=== PATIENT | female | born 1990 | race Caucasian/White ===

== ENCOUNTER 2020-01-07 10:31 | Outpatient (CLI) | payer OTHER, SELFPAY ==
[2020-01-07 11:15] LABS: Basophils Absolute Auto 0.1 K/mm3 (0.0-0.1); Eosinophils Absolute Auto 0.2 K/mm3 (0-0.3); Eosinophils Percent Auto 1.8 % (0-4.4); Hematocrit 43.7 % (37.0-47.0); Hemoglobin 14.6 g/dL (12.0-15.0); Immature Granulocyte Absolute 0.02 K/mm3 (0.00-0.031); Immature Granulocyte Percent A 0.2 % (0-0.5); Lymphocytes Absolute Auto 2.52 K/mm3 (0.9-3.2); Lymphocytes Percent Auto 25.1 % (18.3-44.2); Mean Corpuscular HGB Conc 33.4 g/dl (32-36); Mean Corpuscular Hemoglobin 29.9 pg (26-34); Mean Corpuscular Volume 89.5 fl (80-100); Mean Platelet Volume 8.9 fl (7.4-10.4); Monocytes Absolute Auto 0.8 K/mm3 (0.1-0.6); Neutrophils Absolute Auto 6.4 K/mm3 (1.3-6.7); Neutrophils Percent Auto 63.9 % (45.5-73.1); Platelet Count Result 344 k/mm3 (150-375); Red Blood Count 4.88 M/mm3 (4.2-5.4); Red Cell Distribution Width 11.9 % (11.5-14.5); White Blood Count 10.1 K/mm3 (4.5-10.0)
== END 2020-01-07 10:32 | disposition home or self-care (01) ==
LOC: ANHSURGERY 10:34
PROVIDERS: PCP Internal Medicine; Visit Provider Obstetrics & Gynecology
DX: R10.2 Pelvic and perineal pain (principal); Z01.812 Encounter for preprocedural laboratory examination
CPT/HCPCS: 36415; 85025; 86850; 86900; 86901

== ENCOUNTER 2020-01-15 02:21 | Outpatient (CLI) | payer OTHER, SELFPAY ==
[2020-01-15 18:39] LABS: SARS-CoV-2 RNA PCR Negative
== END 2020-01-15 02:22 | disposition home or self-care (01) ==
LOC: ANHCOVIDDT 02:21
PROVIDERS: PCP Internal Medicine; Visit Provider Obstetrics & Gynecology
DX: Z01.812 Encounter for preprocedural laboratory examination (principal); Z11.59 Encounter for screening for other viral diseases
CPT/HCPCS: 87635; C9803; U0003

== ENCOUNTER 2020-01-17 02:32 | Day surgery (SDC) | payer OTHER, SELFPAY ==
[2020-01-06 15:10] VITALS: BMI 34.4
--- NOTE | 2020-01-15 07:58 | PM.IMHP ---
H&P: HPI History of Present Illness Chief complaint: Enlarged Uterus/ Pelvic Pain/ Irregular Bleeding Narrative: Josi Bradley is a 29 year old female 3 para 3 who was admitted for robotic total hysterectomy and bilateral salpingectomies. She has an enlarged uterus and complains of pain discomfort and dyspareunia. She has a second-degree prolapse and her bleeding has been under control. She is against taking oral contraceptives and refused an IUD. Risks and benefits this procedure reviewed including but not exclusive of , aspiration pneumonia, bleeding, transfusion, perforation injury to bowel bladder, ureters, or other internal organs with need for laparotomy. She received the [employer] handout entitled hysterectomy. She received the div and she handout. She had all questions answered. She asked to proceed Review of Systems Review of Systems: All systems reviewed & are unremarkable except as noted in HPI and below PMFSH Social History Social History Smoking status: Never smoker Spiritual care concerns: No Meds Home Medications and Allergies Home Medications Medication Instructions Recorded Confirmed Type albuterol sulfate 2 puff INHALATION Q6H PRN 01/06/20 01/06/20 History bupropion HCl 150 mg PO DAILY 01/06/20 01/06/20 History cetirizine [Zyrtec] 10 mg PO DAILY 01/06/20 01/06/20 History cholecalciferol (vitamin D3) 25 mcg PO DAILY 01/06/20 01/06/20 History [Vitamin D3] citalopram 40 mg PO DAILY 01/06/20 01/06/20 History metformin 500 mg PO DAILY 01/06/20 01/06/20 History montelukast [Singulair] 10 mg PO DAILY 01/06/20 01/06/20 History multivitamin 1 tablet PO DAILY 01/06/20 01/06/20 History Allergies Allergy/AdvReac Type Severity Reaction Status Date / Time latex Allergy Mild BURNING Verified 01/06/20 15:11 Exam Const: General: no acute distress Eyes: General: appearance normal, both eyes and all related structures Neck: Neck: supple and no JVD Thyroid: thyroid normal Resp: Effort & Inspection: normal respiratory effort Auscultation: clear to auscultation bilaterally Cardio: Rate: regular rate Rhythm: regular rhythm GI: Inspection: non-distended GI Palp: Yes Soft to palpation, No Tenderness to palpation present (GI) and No Guarding due to palpation present (GI) Auscultation: normal bowel sounds : General: Yes bladder normal to inspection External Female Exam: normal external appearance Speculum Exam - Vagina: vaginal bleeding Speculum Exam - Cervix: normal appearance of the cervix and Other cervical findings present (prolapse) Bimanual exam- vagina & uterus: enlarged Bimanual Exam- Adnexa, other: normal adnexae Skin: General skin exam: no rashes or lesions noted Extrem: General: normal to inspection and no edema Psych: Mental Status: mental status grossly normal Affect: normal affect Assessment and Plan Additional Plan impression: Enlarged uterus / pelvic pain and dyspareunia /uterine prolapse : Robotic total vaginal hysterectomy/biliteral salpingectomies
[2020-01-17] VITALS (16 sets, daily range): BP systolic 98–122; BP diastolic 51–73; PULSE 59–100; RESP 12–20; TEMP 36.2–37.3; O2SAT 96–100
--- NOTE | 2020-01-17 02:37 | WPDHPUPDATE1 ---
History and Physical Update Update Date/Time: 01/17/20 02:37 History and Physical has been reviewed, including an updated exam of the patient. There are NO changes in the patient's condition. Risks, benefits, and alternatives have been discussed and questions answered. Patient agrees to proceed with procedure.
[2020-01-17] MEDS: LACTATED RINGERS 1,000 ML 30 ML IV CONT ×2 (08:25→10:56)
[2020-01-17] MEDS: ACETAMINOPHEN 500 MG TABLET 1000 MG PO (08:29)
[2020-01-17] MEDS: KETOROLAC 15 MG/ML VIAL (*BKC) IV PUSH (08:29)
[2020-01-17 08:32] LABS: Glucose Point of Care 100 (65-105)
--- NOTE | 2020-01-17 08:38 | P.PNAN_ITS ---
Anes - Initial Pre Proc Eval Procedure: Operation Date: 01/17/20 09:30 Proposed Procedures p Robotic Assisted Total Vaginal Hysterectomy With Bilateral Salpingectomy - Claudy Wilson MD Date/Time: 01/17/20 08:38 Surgeon: Claudy Wilson MD Pre Op Diagnosis: Enlarged Uterus/ Pelvic Pain/ Irregular Bleeding Patient Data Age: 29 Gender: F Height: 1.65 m Weight: 94 kg Allergies Allergy/AdvReac Type Severity Reaction Status Date / Time latex Allergy Mild BURNING Verified 01/06/20 15:11 Home Medications Medication Instructions Recorded Confirmed Type albuterol sulfate 2 puff INHALATION Q6H PRN 01/06/20 01/06/20 History bupropion HCl 150 mg PO DAILY 01/06/20 01/06/20 History cetirizine [Zyrtec] 10 mg PO DAILY 01/06/20 01/06/20 History cholecalciferol (vitamin D3) 25 mcg PO DAILY 01/06/20 01/06/20 History [Vitamin D3] citalopram 40 mg PO DAILY 01/06/20 01/06/20 History metformin 500 mg PO DAILY 01/06/20 01/06/20 History montelukast [Singulair] 10 mg PO DAILY 01/06/20 01/06/20 History multivitamin 1 tablet PO DAILY 01/06/20 01/06/20 History hydrocodone-acetaminophen [[place]] 1 tablet PO Q4H PRN #30 tablet 01/17/20 Rx Laboratory Tests 01/17/20 08:27 POC Capillary Glucose 100 mg/dl mg/dl (65-105) Patient hx anesthesia problems: none Family hx anesthesia problems: none [facility] Past Medical History Medical History (Updated 01/17/20 @ 08:40 by Sandro Siu MD) Anxiety Asthma Migraine Obesity Social History Social History Smoking status: Never smoker Spiritual care concerns: No Anes - Eval Final PreProcedure Day of Procedure 01/17/20 08:38 Patient weight: obese Heart: regular rate and rhythm Lungs: clear to auscultation and normal air movement Airway: Mallampati scale class II Neurological: alert and oriented Last oral intake: >/= 8 hours ASA classification: II Emergent: no Anesthetic plan: proceed Anesthesia type and monitoring: general ETT Informed Consent: The patient's anesthetic plan and its attendant risks and benefits were discussed with the patient/family/POA. Questions were solicited and answers provided to the satisfaction of the patient/family/POA.
[2020-01-17] MEDS: ceFAZolin 2 GM/D5W 50 ML 2 GM/50 ML BAG IVPB (09:48)
--- NOTE | 2020-01-17 10:41 | PM.PROC ---
Procedure Note - Detailed Date of procedure: 01/17/20 Pre-op diagnosis: Enlarged Uterus/ Pelvic Pain/ Irregular Bleeding Surgeon: Claudy Wilson MD postop diagnosis: Enlarged uterus/ pelvic pain / irregular bleeding Procedure: Robotic total vaginal hysterectomy and bilateral salpingectomy EBL: 100cc Anesthesia: General endotracheal Complications: None Findings: Enlarged uterus. Normal-appearing ovaries and tubes Description of procedure: The patient was prepped and draped in normal sterile fashion placed in the dorsal lithotomy position. Under excellent general trach anesthesia weighted speculum placed posterior portion and a. Anterior lip of the cervix grasped with single-tooth tenaculum and uterus sounded to 10cm. Serial dilatation with fragmented out performed followed passage passage of the 10. TERI and 3. Cold cup. Next the 16 [place] catheter was placed and drained clear urine. The remainder the instruments removed. Gloves were changed A supraumbilical incision made and the Veress needle passed in the abdomen. Abdomen was filled with CO2 gas [id number]. The 8mm trocar advanced in the abdomen. Downside visualized under seen. Patient was placed in Trendelenburg and a right left lateral quadrant incision was made. The 8mm trocars advanced in the abdomen under direct visualization assuring no injury. A right upper quadrant incision made in the 10mm trocar advanced under direct visualization occurring no injury. The robot was docked Attention was turned to the console. The left round ligament was grasped, burned, cut anteriorly a bladder flap was formed by sharply dissecting the bladder caudally from the uterus and cervix to the opposite round ligament was clamped, burned, cut. The left fallopian tube was sharply dissected to removed. This was repeated on the contralateral side of the right to the left utero-ovarian ligament was clamped, burned, cut retaining left ovary. The right utero-ovarian ligament was skeletonized. Was clamped, burned, cut and brought to the level of the previously cut round ligament conserving the right ovary. The left cardinal and broad ligaments were then serially skeletonized clamped, burned, cut and brought down lateral edge of the uterus larger than normal wall blood vessels were seen these areas. This was brought down to the uterine vessels which were then skeletonized clamped burned and cut. In like fashion the cardinal broad ligaments on the right were serially skeletonized clamped, burned, cut and brought down lateral edge of the uterus. Once uterine vessels could be seen these were individually skeletonized clamped, burned, cut. Excellent blanching the uterus was noted a colpotomy incision was made the cervix uterus tubes were removed through the vagina. Blood loss was estimated [id number] the vagina was closed with continuous running 0V lock from lateral edge to lateral edge Jacky midline irrigation undertaken to clear hemostasis was assured but the space was then sprinkled with him in her room in the raw areas. Robot was undocked. The gas removed from the abdomen. Incisions closed with 4 Monocryl glue. The patient was awakened and went to recovery in satisfactory condition. All sponge, needle, instrument counts were correct. There were no immediate complications
[2020-01-17] MEDS: DEXTROSE 5%/LACTATED RINGERS 1,000 ML 125 ML IV CONT (12:47)
[2020-01-17] MEDS: MORPHINE SULFATE 4 MG/ML INJ IV PUSH (12:48)
[2020-01-17] MEDS: KETOROLAC 30 MG/ML VIAL (*BKC) IV PUSH ×2 (14:10→20:11)
[2020-01-18 00:55] VITALS: BP 107/55; PULSE 79; RESP 14; TEMP 37.6; O2SAT 98
[2020-01-18 02:01] VITALS: BP 96/48; PULSE 76; RESP 20; TEMP 37.3; O2SAT 98
[2020-01-18 05:11] LABS: Basophils Percent Auto 0.2 % (0.2-1.2); Eosinophils Percent Auto 0.2 % (0-4.4); Hematocrit 37.1 % (37.0-47.0); Hemoglobin 12.4 g/dL (12.0-15.0); Immature Granulocyte Absolute 0.08 K/mm3 (0.00-0.031); Immature Granulocyte Percent A 0.5 % (0-0.5); Lymphocytes Absolute Auto 2.47 K/mm3 (0.9-3.2); Lymphocytes Percent Auto 14.2 % (18.3-44.2); Mean Corpuscular HGB Conc 33.4 g/dl (32-36); Mean Corpuscular Hemoglobin 29.7 pg (26-34); Mean Corpuscular Volume 88.8 fl (80-100); Mean Platelet Volume 9.2 fl (7.4-10.4); Monocytes Absolute Auto 1.2 K/mm3 (0.1-0.6); Monocytes Percent Auto 7.1 % (2.6-8.5); Neutrophils Absolute Auto 13.5 K/mm3 (1.3-6.7); Neutrophils Percent Auto 77.8 % (45.5-73.1); Platelet Count Result 273 k/mm3 (150-375); Red Blood Count 4.18 M/mm3 (4.2-5.4); Red Cell Distribution Width 11.7 % (11.5-14.5); White Blood Count 17.4 K/mm3 (4.5-10.0)
[2020-01-18] MEDS: KETOROLAC 30 MG/ML VIAL (*BKC) IV PUSH (05:31)
[2020-01-18 07:50] VITALS: BP 109/53; PULSE 71; RESP 16; TEMP 36.6; O2SAT 99
--- NOTE | 2020-01-18 08:01 | P.PNOB_ITS ---
OB - PN: Subj Subjective Date/time seen: 01/18/20 08:01 Patient comments: no complaints and pain well controlled OB - PN: Obj Data Labs CBC & Chem 7: 01/18/20 03:58 Labs: Laboratory Results - last 24 hr 01/17/20 01/18/20 08:27 03:58 WBC 17.4 H RBC 4.18 L Hgb 12.4 Hct 37.1 MCV 88.8 MCH 29.7 MCHC 33.4 RDW 11.7 Plt Count 273 MPV 9.2 Immature Gran % (Auto) 0.5 Neut % (Auto) 77.8 H Lymph % (Auto) 14.2 L [place] % (Auto) 7.1 Eos % (Auto) 0.2 Baso % (Auto) 0.2 Lymph # (Auto) 2.47 [place] # (Auto) 1.2 H Eos # (Auto) 0.0 Baso # (Auto) 0.0 Abs Immat Gran (auto) 0.08 H Absolute Neuts (auto) 13.5 H Absolute Nucleated RBC 0.0 Nucleated RBC % 0.0 POC Capillary Glucose 100 OB - PN A/P Plan day: 1 Plan: discharge home and follow up 6 weeks (2 weeks) Time Spent With Patient Time: Total time spent is greater than 50% in coordination of care (as documented) at patient's floor/unit and/or counseling patient: Time with patient: less than 15 minutes Review of Systems Review of Systems: All systems reviewed & are unremarkable except as noted in HPI and below Exam Const: General: no acute distress Eyes: General: appearance normal, both eyes and all related structures Neck: Neck: supple and no JVD Thyroid: thyroid normal Resp: Effort & Inspection: normal respiratory effort Auscultation: clear to auscultation bilaterally Cardio: Rate: regular rate Rhythm: regular rhythm GI: Inspection: non-distended GI Palp: Yes Soft to palpation, No Tenderness to palpation present (GI) and No Guarding due to palpation present (GI) Auscultation: normal bowel sounds : General: Yes bladder normal to palpation External Female Exam: normal external appearance Speculum Exam - Vagina: normal vaginal discharge and No vaginal bleeding Speculum Exam - Cervix: nontender Bimanual exam- vagina & uterus: bladder normal to palpation and No Cervical tenderness present OB/external & speculum: No vaginal bleeding Skin: General skin exam: no rashes or lesions noted Extrem: General: normal to inspection and no edema Psych: Mental Status: mental status grossly normal Affect: normal affect
[2020-01-18] MEDS: SIMETHICONE 80 MG TAB.CHEW PO (10:22)
[2020-01-18] MEDS: DOCUSATE SODIUM 100 MG CAPSULE PO (10:22)
[2020-01-18] MEDS: ENOXAPARIN 40 MG/0.4 ML SYRINGE SUB-Q (10:23)
== END 2020-01-18 10:55 | disposition home or self-care (01) ==
LOC: ANHSURGERY 07:10 → ANHOB2 12:29
PROVIDERS: PCP Internal Medicine; Visit Provider Obstetrics & Gynecology
PROC: (CPT 58552; principal; 2020-01-17 09:30)
DX: R10.2 Pelvic and perineal pain (principal); N93.9 Abnormal uterine and vaginal bleeding, unspecified; N80.0 Endometriosis of uterus
CPT/HCPCS: 58552; S2900; 36415; 85025; 88307; 99199; A9270; J0690; J1100; J1170; J1650; J1885; J2250; J2270; J2405; J2704; J2710; J3010; J7030; J7120; J7121

== ENCOUNTER → 2020-07-23 13:43 | Outpatient (CLI) | payer OTHER, SELFPAY ==
--- NOTE | ~2020-07-23 | US_ITS ---
EXAMINATION: US transvaginal EXAM DATE: 07/23/2020 14:10 INDICATION: Pelvic pain. Hysterectomy. TECHNIQUE: Pelvic transvaginal sonogram was performed. There are multiple grayscale and Doppler imag es available for interpretation. There is no prior study for comparison. FINDINGS: The vaginal cuff is unremarkable. No free pelvic fluid. Right adnexa: The ovary is not identified. There is no adnexal mass. Left adnexa: The ovary is not identified. There is no adnexal mass. IMPRESSION: Unremarkable pelvic ultrasound exam. Reviewed, dictated and finalized at location A. [facility] PSYCHOLOGIST
== END ==
PROVIDERS: Visit Provider Obstetrics & Gynecology
DX: R10.2 Pelvic and perineal pain (principal)
CPT/HCPCS: 76830

== ENCOUNTER 2021-11-23 13:52 | Outpatient (CLI) | payer OTHER, SELFPAY | END 2021-11-23 13:53 | disposition home or self-care (01) | LOC: ANHSURGERY 13:55 | PROVIDERS: PCP Internal Medicine; Visit Provider Obstetrics & Gynecology | DX: R10.2 Pelvic and perineal pain (principal); Z01.818 Encounter for other preprocedural examination | CPT/HCPCS: 36415; 86850; 86900; 86901 ==

== ENCOUNTER 2021-11-26 01:46 | Day surgery (SDC) | payer OTHER, SELFPAY ==
[2021-11-18 14:27] VITALS: BMI 36.6
--- NOTE | 2021-11-18 14:32 | PC.NURSE ---
Report to the Outpatient Waiting Room, entrance under the green pavilion located off [facility], at time _0845_ on date _11-26-21_. OR Time: _1045_. - You and your visitor will be asked a series of questions to screen for COVID 19 for your protection. - Only one visitor is allowed at this time. - The patient visitor is requested to leave or wait in car when not with patient. - A mask is required within the hospital. Patients may have clear liquids (water, carbonated beverages, clear teas, apple juice) until 3 hours prior to surgery with a maximum of 20 ounces. - No food from midnight until time of surgery Take the following medications with a SIP of water the morning of surgery: ___Bupropion and Trintellix Medications to discontinue per physician None Date to take last dose Please no make-up, nail albanian, hairspray, perfume, deodorant, or body powder the day of surgery. No jewelry (including any body piercings) or valuables the day of surgery, leave them at home. Please take a shower or bath the night before, or the morning of, surgery with an antibacterial soap. Wear comfortable, loose fitting clothing. Children are encouraged to wear pajamas. - Jewelry must be removed prior to entering the operating room. Rings and piercings that are not removed may be cut off. - The hospital will not accept responsibility for valuables. - Please leave all valuables, including medications, at home the day of surgery. If you are going home after surgery, a licensed fleet driver must drive you home. - NO public transportation without another adult. - We recommend that an adult stay with you for 24 hours following discharge. - We also recommend that you do not drive, make important decision, drink alcoholic beverages, or take any drugs that were not prescribed by your health care provider for at least 24 hours after your discharge time. Follow any additional instructions given to you from your surgeon. If you or anyone in your household have experienced Covid symptoms in the past week, please notify your surgeon or the nurse liaison at the phone number below for possible testing. Telephone instructions given to ____Patient and asked if any additional questions and then verbalized understanding. Patient advised to call surgeon office or pre surgery nurse liaison [phone] if any additional questions.
--- NOTE | 2021-11-24 07:17 | P.HP_ITS ---
H&P: HPI History of Present Illness Date/Time: 11/24/21 07:17 Chief Complaint: Pelvic pain Narrative: patient is admitted for diagnostic laparoscopy secondary to severe chronic pelvic pain. Status post 6 hysterectomy. She has had pain has been unrelenting. Risks and benefits reviewed in full [facility] Past Medical History Medical History (Updated 11/24/21 @ 07:19 by Claudy Milton MD) Anxiety Asthma Migraine Obesity Social History Social History Smoking status: Never smoker Alcohol intake: current Spiritual care concerns: No Meds Home Medications and Allergies Home Medications Medication Instructions Recorded Confirmed Type albuterol sulfate 90 mcg/actuation 2 puff inhalation Q6H PRN 01/06/20 11/18/21 History aerosol inhaler Shortness Of Breath bupropion HCl 150 mg 24 hr tablet, 150 mg PO DAILY 01/06/20 11/18/21 History extended release levocetirizine 5 mg tablet (Xyzal) 5 mg PO DAILY 11/18/21 11/18/21 History vortioxetine 10 mg tablet 1 tablet PO DAILY 11/18/21 11/18/21 History (Trintellix) Allergies Allergy/AdvReac Type Severity Reaction Status Date / Time latex Allergy Mild BURNING Verified 11/18/21 14:22 Exam GI: Auscultation: normal bowel sounds : External Female Exam: normal external appearance Speculum Exam - Vagina: normal appearance of the vagina Speculum Exam - Cervix: Cervix absent Bimanual exam- vagina & uterus: uterus absent Bimanual Exam- Adnexa, other: tender Assessment and Plan Assessment and plan (1) Obesity: Code(s): E66.9 - Obesity, unspecified Status: Acute (2) Asthma: Code(s): J45.909 - Unspecified asthma, uncomplicated Status: Acute (3) Anxiety: Code(s): F41.9 - Anxiety disorder, unspecified Status: Acute (4) Pelvic pain: Code(s): R10.2 - Pelvic and perineal pain Status: Acute Plan diagnostic laparoscopy
[2021-11-26] VITALS (9 sets, daily range): BP systolic 98–124; BP diastolic 57–69; PULSE 62–95; RESP 12–16; TEMP 36.3–36.4; O2SAT 99–100
--- NOTE | ~2021-11-26 | US_ITS ---
EXAMINATION: US venous doppler [facility] DATE: 11/26/2021 12:27 INDICATION: Postoperative left lower limb pain. TECHNIQUE: Grayscale ultrasound images without and with compression and Doppler ultrasound images of the left lower extremity veins were obtained. COMPARISON: None. FINDINGS: The visualized portions of left common femoral vein, profunda (deep) femoral vein, femoral vein, popl iteal vein, peroneal veins, posterior tibial veins, gastrocnemius vein and greater saphenous vein out flow are patent. IMPRESSION: 1. No deep venous thrombosis in the left lower limb. Reviewed, dictated and finalized at location B.
--- NOTE | 2021-11-26 07:12 | WPDHPUPDATE1 ---
History and Physical Update Update Date/Time: 11/26/21 07:12 History and Physical has been reviewed, including an updated exam of the patient. There are NO changes in the patient's condition. Risks, benefits, and alternatives have been discussed and questions answered. Patient agrees to proceed with procedure.
[2021-11-26] MEDS: ACETAMINOPHEN 500 MG TABLET 1000 MG PO (07:39)
[2021-11-26] MEDS: LACTATED RINGERS 1,000 ML 30 ML IV CONT (07:51)
[2021-11-26] MEDS: KETOROLAC 15 MG/ML VIAL (*BKC) IV PUSH (07:53)
--- NOTE | 2021-11-26 08:46 | P.PNAN_ITS ---
Anes - Initial Pre Proc Eval Procedure: Operation Date: 11/26/21 09:15 Proposed Procedures p Diagnostic Laparoscopy - Claudy Milton MD Date/Time: 11/26/21 08:46 Surgeon: Claudy Milton MD Pre Op Diagnosis: pelvic pain Patient Data Age: 31 Gender: F Height: 1.65 m Weight: 104.2 kg Last Vital Signs Temp 36.4 C 11/26/21 07:55 Pulse 95 11/26/21 07:55 Resp 16 11/26/21 07:55 BP 124/69 11/26/21 07:55 Pulse Ox 100 11/26/21 07:55 O2 Del Method Room Air 11/26/21 07:55 Allergies Allergy/AdvReac Type Severity Reaction Status Date / Time latex Allergy Mild BURNING Verified 11/18/21 14:22 Home Medications Medication Instructions Recorded Confirmed Type albuterol sulfate 90 mcg/actuation 2 puff inhalation Q6H PRN 01/06/20 11/18/21 History aerosol inhaler Shortness Of Breath bupropion HCl 150 mg 24 hr tablet, 150 mg PO DAILY 01/06/20 11/26/21 History extended release levocetirizine 5 mg tablet (Xyzal) 5 mg PO DAILY 11/18/21 11/26/21 History vortioxetine 10 mg tablet 1 tablet PO DAILY 11/18/21 11/26/21 History (Trintellix) hydrocodone 5 mg-acetaminophen 325 1 tablet PO Q4H PRN pain #30 tabs 11/26/21 Rx mg tablet Patient hx anesthesia problems: none Family hx anesthesia problems: none Results Review: All pre-operative results and documents have been reviewed as part of the pre- operative evaluation. [facility] Past Medical History Medical History Anxiety Asthma Migraine Obesity Social History Social History Smoking status: Never smoker Alcohol intake: current Living arrangements: with family Spiritual care concerns: No Anes - Eval Final PreProcedure Day of Procedure 11/26/21 08:46 Patient weight: obese Heart: regular rate and rhythm Lungs: clear to auscultation Neurological: alert and oriented Last oral intake: >/= 8 hours ASA classification: II Emergent: no Anesthetic plan: proceed Anesthesia type and monitoring: general ETT and standard monitoring Results Review: All pre-operative results and documents have been reviewed as part of the pre- operative evaluation. Informed Consent: The patient's anesthetic plan and its attendant risks and benefits were discussed with the patient/family/POA. Questions were solicited and answers provided to the satisfaction of the patient/family/POA.
--- NOTE | 2021-11-26 09:52 | W.PM.PROC2 ---
Procedure Note - Detailed Date of Procedure 11/26/21 Pre-op Diagnosis pelvic pain Post-op Diagnosis Other (Endometriosis) Procedure Performed Laparoscopic destruction of endometriosis Surgeon Claudy Milton MD Anesthesia General Indications This is a 31-year-old status post hysterectomy a bilateral salpingectomy was severe pelvic Findings Absent uterus and tubes. Ovaries appeared within normal limits. Areas of endometriosis along the right and left uterosacral ligaments. Normal-appearing appendix normal-appearing gallbladder and liver edge Description of Procedure The patient was prepped draped in the normal sterile fashion placed in the dorsal lithotomy position. Under excellent general trach anesthesia weighted speculum placed in posterior fornix of vagina a sponge stick was placed in the bladder drained of clear urine. The weighted speculum was removed and gloves were changed. An infraumbilical incision made the Veress needle passed in the abdomen. Abdomen filled with CO2 gas [id number]. 5mm trocar advanced under direct visualization assuring no injury. Patient placed in Trendelenburg and a suprapubic incision made. The 5mm trocar advanced under direct visualization assuring no injury. The above findings seen in the areas of endometriosis cauterized at 2nd instruments then withdrawn irrigation undertaken. Gas removed from the abdomen the incisions closed with 4 Monocryl and glue. Patient was awakened and went to recovery in satisfactory condition. All sponge, needle, instrument counts were correct. There were no immediate complications Estimated Blood Loss 5 Drains No Packing No Pathology None sent Complications No immediate complications Condition Stable Disposition PACU
[2021-11-26] MEDS: fentaNYL CITRATE INJ (*CRX) 100 MCG/2 ML VIAL 25 MCG IV PUSH ×4 (10:10→10:34)
[2021-11-26] MEDS: oxyCODONE HCL (*CRX) 5 MG TAB IR PO (11:11)
--- NOTE | 2021-11-26 12:27 | SUR.PHASEII ---
1155- Patient getting dressed for discharge home and called this RN into room for complaints of pain to left lower leg. Patient describing pain to left lower leg/calf area as cramping and discomfort upon standing and when she points her toes upward. Assessed patient's leg and no redness noted or heat to site. Peripheral pulses intact. 1203- Paged Dr. Augustina Milton. 1207- Dr. Augustina Milton returned call and notified him of patient's pain to left lower extremity and concern for possible DVT. Per Dr. Augustina Milton place orders for STAT doppler of left lower extremity to rule out DVT and if negative patient can be discharged home. Orders placed for doppler. 1210- This RN transported patient to ultrasound for testing. 1225- Returned to department with doppler being negative for DVT. 1227- Patient discharged home with all questions and concerns answered. Patient verbalized understanding of discharge instructions.
== END 2021-11-26 12:27 | disposition home or self-care (01) ==
PROVIDERS: PCP Internal Medicine; Visit Provider Obstetrics & Gynecology
PROC: (CPT 49320; principal; 2021-11-26 09:15)
DX: R10.2 Pelvic and perineal pain (principal); N80.3 Endometriosis of pelvic peritoneum; M79.662 Pain in left lower leg; J45.909 Unspecified asthma, uncomplicated; F41.9 Anxiety disorder, unspecified; E66.9 Obesity, unspecified; Z68.38 Body mass index [BMI] 38.0-38.9, adult; Z79.51 Long term (current) use of inhaled steroids
CPT/HCPCS: 58662; 36415; 86850; 86900; 86901; 93971; A9270; J0330; J1885; J2250; J2270; J2405; J2704; J3010; J7120

== ENCOUNTER 2023-11-08 12:53 | Outpatient (CLI) | payer OTHER, SELFPAY | END 2023-11-08 12:54 | disposition home or self-care (01) | LOC: ANHSURGERY 12:58 | PROVIDERS: PCP Family Medicine; Visit Provider Obstetrics & Gynecology | DX: R10.2 Pelvic and perineal pain (principal); Z01.818 Encounter for other preprocedural examination | CPT/HCPCS: 36415; 86850; 86900; 86901 ==

== ENCOUNTER 2023-11-10 00:19 | Day surgery (SDC) | payer OTHER, SELFPAY ==
[2023-11-07 12:40] VITALS: BMI 38.3
--- NOTE | 2023-11-07 12:41 | PC.NURSE ---
Report to the Outpatient Waiting Room, entrance under the green pavilion located off [facility], at time _0730_ on date _[id number]_. Planned Procedure Time: _0930_. Time changes happen often and if your time is changed the preop area will call you the afternoon before. - You and your visitor will be asked to self-screen and do not enter if you have any COVID symptoms. - A mask is optional within the hospital at this time. Patients may have clear liquids (water, carbonated beverages, clear teas, apple juice) until 3 hours prior to surgery with a maximum of 20 ounces. - No food from midnight until time of surgery Take the following medications with a SIP of water the morning of surgery: __Bupropion and Trintellix DO NOT STOP ANY OF YOUR OTHER PRESCRIPTION MEDICATIONS PRIOR TO SURGERY ?EXCEPT THE FOLLOWING Medications to discontinue per physician None Date to take last dose Please no make-up, nail japanese, hairspray, perfume, deodorant, or body powder the day of surgery. No jewelry (including any body piercings) or valuables the day of surgery, leave them at home. Please take a shower or bath the night before, or the morning of, surgery with an antibacterial soap. Wear comfortable, loose fitting clothing. - Jewelry must be removed prior to entering the operating room. Rings and piercings that are not removed may be cut off. - The hospital will not accept responsibility for valuables. - Please leave all valuables, including medications, at home the day of surgery. If you are going home after surgery, a licensed driver license examiner must drive you home. - NO public transportation without another adult if you receive anesthesia. - We recommend that an adult stay with you for 24 hours following discharge. - We also recommend that you do not drive, make important decision, drink alcoholic beverages, or take any drugs that were not prescribed by your health care provider for at least 24 hours after your discharge time. Follow any additional instructions given to you from your surgeon. If you or anyone in your household have experienced Covid symptoms in the past week, please notify your surgeon or the nurse liaison at the phone number below for possible testing. Telephone instructions given to _Josi_and asked if any additional questions and then verbalized understanding. Patient advised to call surgeon office or pre surgery nurse liaison [phone] if any additional questions.
--- NOTE | 2023-11-08 06:00 | PM.IMHP ---
H&P: HPI History of Present Illness Date/Time: 11/08/23 06:00 Chief Complaint: 33-year-old female admitted for diagnostic laparoscopy and left ovarian cystectomy 2nd to ovarian cyst and pain. Narrative: The patient complains of severe left-sided pelvic pain. She is status post hysterectomy none imaging shows a large left ovarian cyst. Risks and benefits reviewed including but not exclusive of , aspiration, bleeding, transfusion, perforation injury to bowel, bladder, ureters, other with need for laparotomy. She received the A[employer] handout entitled laparoscopy. She had all questions answered and asked to proceed PMFSH Past Medical History Medical History Anxiety Asthma Migraine Obesity Social History Social History Smoking status: Never smoker Alcohol intake: current Living arrangements: with family Spiritual care concerns: No Meds Home Medications and Allergies Home Medications Medication Instructions Recorded Confirmed Type albuterol sulfate 90 mcg/actuation 2 puff inhalation Q6H PRN 01/06/20 11/07/23 History aerosol inhaler Shortness Of Breath bupropion HCl 150 mg 24 hr tablet, 150 mg PO DAILY 01/06/20 11/07/23 History extended release vortioxetine 10 mg tablet 1 tablet PO DAILY 11/18/21 11/07/23 History (Trintellix) cetirizine 10 mg tablet (Zyrtec) 10 mg PO DAILY 11/07/23 11/07/23 History montelukast 10 mg tablet 10 mg PO DAILY 11/07/23 11/07/23 History spironolactone 100 mg tablet 100 mg PO DAILY 11/07/23 11/07/23 History Allergies Allergy/AdvReac Type Severity Reaction Status Date / Time latex Allergy Mild BURNING Verified 11/07/23 12:29 Exam Const: General: cooperative, healthy appearing, comfortable and overweight Orientation/consciousness: oriented to person, oriented to place and oriented to time HENMT: Head: normal to inspection Chest: Chest palpation & inspection: normal inspection of the chest Resp: Effort & Inspection: normal respiratory effort Cardio: Rate: regular rate Rhythm: regular rhythm Heart sounds: S1 normal heart sound present and S2 normal heart sound present GI: Inspection: normal to inspection and obesity Auscultation: normal bowel sounds : External Female Exam: normal external appearance Speculum Exam - Vagina: normal appearance of the vagina Speculum Exam - Cervix: Cervix absent Bimanual exam- vagina & uterus: uterus absent Bimanual Exam- Adnexa, other: Adnexal mass present on the left tender Assessment and Plan Assessment and plan (1) Left ovarian cyst: Code(s): N83.202 - Unspecified ovarian cyst, left side Status: Acute Plan Laparoscopic left ovarian cystectomy with possible left oophorectomy
[2023-11-10] VITALS (13 sets, daily range): BP systolic 106–120; BP diastolic 61–89; PULSE 74–106; RESP 12–16; TEMP 36.1–36.2; O2SAT 95–100; BMI 39.9
--- NOTE | 2023-11-10 07:03 | WPDHPUPDATE1 ---
History and Physical Update Update Date/Time: 11/10/23 07:03 History and Physical has been reviewed, including an updated exam of the patient. There are NO changes in the patient's condition. Risks, benefits, and alternatives have been discussed and questions answered. Patient agrees to proceed with procedure.
[2023-11-10] MEDS: LACTATED RINGERS 1,000 ML 30 ML IV CONT ×2 (08:14→09:54)
[2023-11-10] MEDS: KETOROLAC 15 MG/ML VIAL (*BKC) IV PUSH (08:15)
[2023-11-10] MEDS: ACETAMINOPHEN 500 MG TABLET 1000 MG PO (08:15)
--- NOTE | 2023-11-10 08:46 | WPDANESEPPF ---
Anes - Initial Pre Proc Eval Procedure: Operation Date: 11/10/23 09:30 Proposed Procedures p Laparoscopic Left Ovarian Cystectomy - Claudy Milton MD Date/Time: 11/10/23 08:46 Surgeon: Claudy Milton MD Pre Op Diagnosis: left ovarian cyst, pain Patient Data Age: 33 Gender: F Height: 1.65 m Weight: 108.8 kg Last Vital Signs Temp 97.1 F L 11/10/23 08:20 Pulse 106 H 11/10/23 08:20 Resp 16 11/10/23 08:20 BP 118/84 11/10/23 08:20 Pulse Ox 98 11/10/23 08:20 O2 Del Method Room Air 11/10/23 08:20 Allergies Allergy/AdvReac Type Severity Reaction Status Date / Time latex Allergy Mild BURNING Verified 11/10/23 08:17 Home Medications Medication Instructions Recorded Confirmed Type albuterol sulfate 90 mcg/actuation 2 puff inhalation Q6H PRN 01/06/20 11/07/23 History aerosol inhaler Shortness Of Breath bupropion HCl 150 mg 24 hr tablet, 150 mg PO DAILY 01/06/20 11/07/23 History extended release vortioxetine 10 mg tablet 1 tablet PO DAILY 11/18/21 11/10/23 History (Trintellix) cetirizine 10 mg tablet (Zyrtec) 10 mg PO DAILY 11/07/23 11/07/23 History montelukast 10 mg tablet 10 mg PO DAILY 11/07/23 11/07/23 History spironolactone 100 mg tablet 100 mg PO DAILY 11/07/23 11/07/23 History hydrocodone 5 mg-acetaminophen 325 1 tablet PO Q4H PRN pain #20 tabs 11/10/23 Rx mg tablet Patient hx anesthesia problems: none Family hx anesthesia problems: none Results Review: All pre-operative results and documents have been reviewed as part of the pre-operative evaluation. ON LICENSE OF [facility] Past Medical History Medical History Anxiety Asthma Migraine Obesity Social History Social History Smoking status: Never smoker Alcohol intake: current Living arrangements: with family Spiritual care concerns: No Anes - Eval Final PreProcedure Day of Procedure 11/10/23 08:46 Patient weight: morbidly obese Heart: regular rate and rhythm Lungs: clear to auscultation Airway: Mallampati scale class II Neurological: alert and oriented Last oral intake: >/= 8 hours ASA classification: III Emergent: no Anesthetic plan: proceed Anesthesia type and monitoring: general ETT and standard monitoring Results Review: All pre-operative results and documents have been reviewed as part of the pre-operative evaluation. Exercise induced asthma. Informed Consent: The patient's anesthetic plan and its attendant risks and benefits were discussed with the patient/family/POA. Questions were solicited and answers provided to the satisfaction of the patient/family/POA.
--- NOTE | 2023-11-10 09:48 | W.PM.PROC2 ---
Procedure Note - Detailed Date of Procedure 11/10/23 Pre-op Diagnosis left ovarian cyst, pain Post-op Diagnosis Same Procedure Performed laparoscopic left oophorectomy Surgeon Claudy Milton MD Anesthesia General Indications 33-year-old female status post hysterectomy with complex left ovarian cyst Findings uterus and cervix were surgically absent. Complex left ovary with some mild torsion. Normal-appearing right ovary Description of Procedure the patient was prepped draped in the normal sterile fashion placed in the dorsal lithotomy position. Under excellent general trach anesthesia weighted speculum placed in posterior fornix vagina. Sponge stick placed in the vagina and the bladder drained of 400cc of clear urin. The weighted speculum was removed the gloves were changed. A supraumbilical incision made the Veress needle passed in the abdomen. Abdomen filled with CO2 gas [id number]. The 5mm visualizing up to scope was inserted and no injury seen. Patient placed in Trendelenburg and a suprapubic incision made. The 5mm trocar advanced under direct visualization assuring no injury. The above findings were seen in photo documentation undertaken left lower quadrant incision made from the previous hysterectomy site and 10mm trocar advanced under visualization the infundibulopelvic structure was skeletonized noted be swollen and twisted. This was clamped, burned, cut. The ovary was then placed in Endo-Catch and removed through the left lower quadrant. Irrigation undertaken to clear and hemostasis was assured. No other abnormalities were seen. Lower site removed. The gas removed from the abdomen. The upper site removed. Incisions closed with 4 Monocryl glue. Patient was awakened went to recovery in satisfactory condition. All sponge, needle, instrument counts were correct. There were no immediate complications Drains No Packing No Pathology Yes Complications No immediate complications Condition Stable Disposition PACU
[2023-11-10] MEDS: fentaNYL CITRATE INJ (*CRX) 100 MCG/2 ML VIAL 25 MCG IV PUSH ×8 (10:23→11:00)
[2023-11-10] MEDS: HYDROmorphone HCL INJ (*CRX) 1 MG/ML SYR 0.25 MG IV PUSH ×6 (11:04→12:30)
[2023-11-10] MEDS: oxyCODONE HCL (*CRX) 5 MG TAB IR PO (11:45)
== END 2023-11-10 13:10 | disposition home or self-care (01) ==
PROVIDERS: PCP Family Medicine; Visit Provider Obstetrics & Gynecology
PROC: (CPT 49320; principal; 2023-11-10 09:30)
DX: N83.12 Corpus luteum cyst of left ovary (principal); J45.909 Unspecified asthma, uncomplicated; F41.9 Anxiety disorder, unspecified; Z79.51 Long term (current) use of inhaled steroids; E66.9 Obesity, unspecified; Z68.39 Body mass index [BMI] 39.0-39.9, adult
CPT/HCPCS: 58661; 36415; 86850; 86900; 86901; 88305; A9270; J1100; J1170; J1885; J2250; J2405; J2704; J3010; J7030; J7120

== ENCOUNTER 2025-03-03 09:21 | Outpatient (CLI) | payer OTHER, SELFPAY ==
--- OUTSIDE RECORDS SUMMARY | 2023-12-09 16:30 | XMS_ITS ---
Author Organization [facility] [place] ([address]) Address [address] [place] [address] Care Team Providers Care Pedigree Tracer Name Role Phone Ethan Duggan Unavailable [phone] ZZ-Migration, Provider Unavailable Unavailab le REASON FOR VISIT [facility] To [facility] Conversion Encounter Medications Medication SIG (Take, Route, [...] Date Provider Diagnosis [facility] - [address] [place] [address] 12/09/2023 Provider ZZ-Migration Plan Of Treatment No Information Progress Notes * Josi BRADLEY MDOB:07/1989 (35 yo F)Acc No.[id number]:12/09/2023 Patient: Josi GONZALES Provider: Romel Mckeon :1990 A ge:33 Y S ex:Female Date:12/09/2023 Address:[address] [facility] Subjective: * Chief [facility]s: * [facility] * Medical History: * Medications: [...] * Electronic signature of Tj MontesZ-Migration on 03/03/2025 at 09:42 AM CDT Sign off status: Pending * Provider: Roeml Mckeon Date: 0 12/09/[address]/Srikanth/Todd on: 0 03/03/2025 09:42 AM CDT
[2025-03-03 09:40] LABS: Hematocrit 39.6 % (37.0-47.0); Hemoglobin 13.2 g/dL (12.0-15.0)
--- OUTSIDE RECORDS SUMMARY | 2025-03-03 09:42 | XMS_ITS | Clinical Summary ---
Author Organization [facility] Address [address] [place] [address] Phone Care Team Providers Care Mosaic Technician Name Role Phone Yasmani Khan MD Primary Care Provider Unavaila ble Allergies No known active allergies Medications amoxicillin (AMOXIL) 500 MG Capsule 08/07/2017 Active MONONESSA 0.25-35 MG-MCG Tablet 06/29/2017 Activ e citalopram (CELEXA) 40 MG Tablet 07/17/2017 Active Active Problems No known active problems Social History Tobacco Use Types Packs/Day Years Used Date Smoking Tobacco: Never Smokeless Tobacco: Never Alcohol Use Standard Drinks/Week Comments No 0 (1 standard drink = 0.6 oz pur e alcohol) Comments No Sex and Gender Information Value Date Recorded Sex Assigned at Not on file Legal Sex Female 5:06 PM ADMITTING COORDINATOR Gender Identity Not on file Sexual Orientation Not on file Last Filed Vital Signs Vital Sign Reading Time Taken Comments Blood Pressure 112/72 08/09/2017 5:17 PM ADMITTING COORDINATOR Pulse 120 08/09/2017 5:17 PM ADMITTING COORDINATOR Temperature 37.8 C (100.1 F) 08/09/2017 5:17 PM ADMITTING COORDINATOR Respiratory Rate 18 08/09/2017 5:17 PM ADMITTING COORDINATOR Oxygen Saturation 97% 08/09/2017 5:17 PM ADMITTING COORDINATOR Inhaled Oxygen Concentration - - Weight 88.9 kg (196 lb) 08/09/2017 5:17 PM ADMITTING COORDINATOR Height 165.1 cm (5' 5) 08/09/2017 5:17 PM ADMITTING COORDINATOR Body Mass Index 32.62 08/09/2017 5:17 PM ADMITTING COORDINATOR Plan of Treatment Health Maintenance Due Date Last Done Comments Hepatitis C Virus (HCV) Screening 1990 TdaP Immunization 1990 Hepatitis B Immunization (1 of 3 - 19+ 3-dose series) 2009 Pap Smear 2011 Human Papillomavirus (HPV) Immunization (1 - 3-dose SCDM series) 2017 Cervical Cancer Screening (CCS) 01/26/2020 HPV/Cotest 01/26/2020 SARS-COV-2 Immunization ( - 2023- season) 2024 Influenza Immunization (#1) 2025 Respiratory Syncytial Virus (RSV) Immunization (Adult) (1 - 1-dose 75+ series) 2065 Meningococcal Immunization (ACWY) Aged Out No longer eligible based on patient's age to complete this topic Pneumococcal Immunization Combined Aged Out No longer eligible based on patient's age to complete this topic Rotavirus Immunization Aged Out No lo nger eligible based on patient's age to complete this topic Care Teams Mosaic Technician Relationship Specialty Start Date End Date Yasmani Khan MD [address] [place] [address] DR IGNACIO [address] [place], [place] [address], [place] [address] PCP - General Internal Medicine 08/09/17
--- OUTSIDE RECORDS SUMMARY | 2025-03-03 09:42 | XMS_ITS | Clinical Summary ---
Author Organization [facility] A Address [address] [place] [address] Care Team Providers Care Charge Master Coordinator Name Role Phone Yasmani Khan MD Primary Care Provi edie Allergies No known active allergies Medications fluticasone (FLONASE) 50 mcg/actuation nasal spray spray 1 - 2 spray by Intranasal route every day in each nostril 1 Bottle 0 7 Active buPROPion XL (WELLBUTRIN XL) 150 mg 24 hr tablet TK 1 T PO QD 0 Active albuterol HFA (PROVENTIL HFA,VENTOLIN HFA,PROAIR HFA) 90 mcg/actuation inhaler Inhale 2 puffs every 6 (six) hours as needed for wheezing 1 Inhaler 3 1 Active levocetirizine (XYZAL) 2.5 mg/5 mL solution Take by mouth every evening Active Trintellix 10 mg tablet 2 Active ALPRAZolam (XANAX) 0.5 mg tablet Take by mouth every 12 (twelve) hours as needed 2 Active hyoscyamine (LEVSIN) 0.125 mg tabletIndications :Urinary Incontinence Take 1 tablet (0.125 mg total) by mouth every 4 (four) hours as needed for cramping 30 tablet 3 2 Active Active Problems Problem Noted Date Diagnosed Date Fatty liver 08/11/2021 Allergic conjunctivitis and rhinitis, bilateral 10/16/2019 Assessment & Plan (10/16/2019 1:34 PM CDT): Stay with zyrtec flonase needs to reduce exposure some to help trial script for singulair daily. otc pepciiiiid/tagamet can helpas well as a hystimine josh otc eye drop zanidor to try If not getting reliev trial short term pulse of prednisone But can't live on. Mask when out will also help Class 2 obesity with body ma ss index (BMI) of 35.0 to 35.9 in adult 07/24/2019 Assessment & Plan (07/24/2019 11:14 AM MOBILE CRANE OPERATOR): congrad on wt loss and discussed further wt loss and target wt forthte future with 150 a great goal for hte future. As a upper wt PE (physical exam), annual 07/24/2019 Assessment & Plan (07/24/2019 11:23 AM MOBILE CRANE OPERATOR): healtlhy female and purposoeful wt loss.would recheck labs wit zuly malhotra at work and bringin in future. To check up on chol and vit d def., work on wt and bring in screening labs in future Vitamin D deficiency 07/24/2019 Assessment & Plan (07/24/2019 11:24 AM MOBILE CRANE OPERATOR): willswitch to 5000 a day from [address]30 a week after 3 months. Metabolic syndrome 04/26/2019 Assessment & Plan (07/24/2019 11:15 AM MOBILE CRANE OPERATOR): Wt loss will convert this to l and will go away so cont with wt off and limit simple crbs Assessment & Plan (04/26/2019 2:55 PM CDT): Insulin levels high and drop wt and will see improvement . Has memtformin from manager e learning and thinking of taking and talked at length about Varicose vein of leg 10/28/2017 Assessment & Plan (10/28/2017 10:08 AM CDT): Bump seen is varicose vein. Support hose will help. Migraine with aura 10/28/2017 Assessment & Plan (10/16/2019 1:32 PM CDT): sems stable for now This was a telemedicine visit with josi bradley which took place via phone. During the visit, I was located office and the patient was located home. The session started at 115 and ended at 130. The patient has been informed that the visit may not be secure and acknowledged the information. I have explained the option of participating in a telephone or video visit during the COVID-19 public health emergency to the patient. After being given an opportunity to ask questions about and discuss this type of visit, the patient verbally consented to proceeding with the telephone / video visit. The patient understands that this service replaces an office visit and they may be billed and/or responsible for any applicable copayments. Assessment & Plan (07/24/2019 11:16 AM MOBILE CRANE OPERATOR): Several monoths from last Assessment & Plan (10/28/2017 10:14 AM CDT): Tract numbers so as to know How many you have. Before starting meds Pure hypercholesterolemia 10/28/2017 Assessment & Plan (07/24/2019 11:16 AM MOBILE CRANE OPERATOR): Works to contrll intake and I proves with diet [id number] to yr'ly Assessment & Plan (10/28/2017 10:17 AM CDT): Prior elevatio and not checked for several yrs. Will order check. Panic 10/28/2017 Assessment & Plan (07/24/2019 11:15 AM MOBILE CRANE OPERATOR): Controlled on meds andnot used the xanax for months. Given pst hx plains on staying on celelxfor the future Assessment & Plan (10/28/2017 10:18 AM CDT): celexa working and will stay on. Given by manager e learning and working./ Resolved Problems Problem Noted Date Diagnosed Date Resolved Date BMI 38.0-38.9,adult 04/26/2019 07/24/19 20 Assessment & Plan (04/26/2019 2:53 PM CDT): lond tlk about wt 30 min Immunizations Immunization Administration Dates Next Due DTP 09/04/1991, 1,1990,03/30 DTaP, Unspecified 02/03/1995 HPV, Quadrivalent 01/20/2009,09/16/2008,07/22/19 09 Hep B, Unspecified 02/01/2000,09/01/1999, 000 HiB 06/05/1991, 1,1990,06/08 Influenza, Quadrivalent, Spl it, Intramuscular 03/21/2017 Influenza, Quadrivalent, Spl it, Preservative Free, Intradermal 04/28/2015 Influenza, Quadrivalent, Spl it, Preservative Free, Intramuscular 03/11/2020,03/27/2018 Influenza, Trivalent, IM (MDV) 03/30/2014,2012,04/16/2012 Influenza, Trivalent, Preser vative Free, Intramuscular 04/11/2016,04/05/2015,03/30/2014 Influenza, Unspecified 08/11/2021(Deferr ed: Patient Refused),03/15/2021(Deferred: Patient Refused),03/26/2020(Deferred: Patient Refused),04/12/2019,02/20/2019(Deferre d: Patient Refused),04/10/2018 MMR 02/03/1995,06/05/1991 Meningococcal Polysaccharide (Menomune) 12/17/2007 OPV 02/03/1995, 2,1990,06/01,1990 Rho (D) Immune Globulin, IV or IM 2018,08/04/2018,07/16/2016,05/07 Td, Unspecified 12/17/2003 Tdap 09/19/2018,06/13/2016,12/16/2005 Medical History Medical History Date Comments Hx Other Medical ALLERGY INJECTI ONS Hx Other Medical child Family History Medical History Relation Name Comments Other Brother pulm atresia; Diabetes Maternal Grandmother Diabete s mellitus; Relation Name Status Comments Brother Maternal Grandmother Social History Tobacco Use Types Packs/Day Years Used Date Smoking Tobacco: Never Smokeless Tobacco: Never Tobacco Cessation:Counseling Given: No PHQ-2 Answer Date Recorded PHQ-2 Total Score (If total score is 3 or more points, staff should administer the PHQ-9) 0 09/22/2021 Comments No Sex and Gender Information Value Date Recorded Sex Assigned at Not on file Legal Sex Female 11:28 PM MOBILE CRANE OPERATOR Gender Identity Not on file Sexual Orientation Not on file Obstetrics History Last Filed Vital Signs Vital Sign Reading Time Taken Comments Blood Pressure 108/66 09/22/2021 11:00 AM CDT Pulse 82 09/22/2021 11:00 AM CDT Temperature 36.7 C (98 F) 09/22/2021 11:00 AM CDT Respiratory Rate 18 07/24/2019 10:27 AM MOBILE CRANE OPERATOR Oxygen Saturation 99% 09/22/2021 11:00 AM CDT Inhaled Oxygen Concentration - - Weight 100.7 kg (222 lb) 09/22/2021 11:00 AM CDT Height 165.1 cm (5' 5) 09/22/2021 11:00 AM CDT Body Mass Index 36.94 09/22/2021 11:00 AM CDT Plan of Treatment Not on file Insurance * Guarantor: Josi Bradley Account Type Relation to Patient Date of Phone Billing Address Personal/Family Self 1990 [address] [place] [address] [employer] Member Subscriber Plan / Payer (Ef fective 2021-Present) Name:Josi Bradley Relation to Subscriber:Spouse Name:MIKESHALININOLBERTO CARVER Date of :1989 (Home) Address: [address] [place] [address] Payer ID:[id number] ([facility]) Type:CIGNA HMO/PPO Address: [id number] [phone] * Guarantor: Josi Bradley Account Type Relation to Patient Date of Phone Billing Address Personal/Family Self 1990 [address] [place] [address] [employer] Member Subscriber Plan / Payer (Ef fective 2021-Present) Name:Josi Bradley Relation to Subscriber:Spouse Name:NOLBERTO BRADLEY Subscriber ID:Not on file Date of :1989 (Home) Address: [address] [place] [address] Payer ID:[id number] ([employer]) Type:CIGNA HMO/PPO Address: [facility] [id number] [place], [place] [address] [address] * Guarantor: Josi Bradley Account Type Relation to Patient Date of Phone Billing Address Personal/Family Self 1990 [address] [place] [address] Care Teams Charge Master Coordinator Relationship Specialty Start Date End Date Yasmani Khan MD PCP - General 04/29/14
--- OUTSIDE RECORDS SUMMARY | 2025-03-03 09:42 | XMS_ITS | Patient Health Record ---
Author Organization [facility] ([address]) Address [address] [place] [address] Care Team Providers Care Art Therapist Name Role Phone Ethan Duggan Unavailable [phone] Allergies No Known Allergies Reason For Referral No Information Medications Medication SIG (Take, Route, Frequency, Duration) Notes Start Date End Date Status VENTOLIN HFA 90 mcg/inh 2 puff(s) inhale d every 6 hours Active Montelukast Sodium 10 MG 1 tab(s) [...] 2 puff(s) inhaled every 6 hours Active AUVI -Q 0.3 mg as directed intramus cularly once; Duration: 30 day(s) 11/24/2021 Active buPROPion HCl ER (SR) 150 MG 1 tab(s) orally 2 times a day Active MONTELUKAST SODIUM 10 mg 1 tab(s) orally once a day; Duration: 30 day(s) 11/24/2021 Active Trintellix 10 MG 1 tab(s) orally once a day Active TRINTELLIX 10 mg 1 tab(s) orally once a day Active BUPROPION (EQV-WELLBUTRIN SR) 150 mg/12 hours 1 tab(s) orally 2 times a day Active AZELASTINE HYDROCHLORIDE NASAL 137 mcg/inh 2 spray(s) intranasally 2 times a day; Duration: 30 day(s) 11/24/2021 Active FAMOTIDINE 40 mg 1 tab(s) orally 30 m inutes before shots 11/24/2021 Active Social History Tobacco Use: Social History Observation Description Date Details (start date - stop date) Never Smoker NA - NA Smoking Smart Form: Question Answer Notes Are you a: never smoker Problems Problem Type SNOMED Code ICD Code Onset Dates Problem Status W/U Status Risk Notes Problem Anxiety disorder (089789054) Anxiety disorder, unspecified (F41.9) Active confirmed Problem Chronic allergic conjunctivitis (90072643) Other chronic allergic conjunctivitis (H10.45) Active confirmed Problem Allergic rhinitis caused by pollen (disorder) (38994704) Allergic rhinitis due to pollen (J30.1) Active confirmed Problem Allergic rhinitis (64728599) Other allergic rhinitis (J30.89) Active confirmed Problem Allergic rhinitis caused by animal hair and dander (942893932649153) Allergic rhinitis due to animal (cat) (dog) hair and dander (J30.81) Active confirmed Problem Chronic sinusitis (80328729) Other chronic sinusitis (J32.8) Active confirmed Plan Of Treatment No Information Insurance Providers Payer Name Payer Address Payer Phone Subscriber Number Group Number Insured Name Patient Relationship to Insured Coverage Start Date Coverage End Date Amara ALEXANDER [address] [place] [address] [id number] Josi Kingston i Self - patient is the insured Medical (General) History Medical History History ICD Code Anxiety disorder, unspecified F41.9 Surgical History Surgery Date(Month/Year)
== END 2025-03-03 09:22 | disposition home or self-care (01) ==
PROVIDERS: Anesthesiology; PCP Family Medicine; Visit Provider Obstetrics & Gynecology
DX: N83.201 Unspecified ovarian cyst, right side (principal); D64.9 Anemia, unspecified; Z01.818 Encounter for other preprocedural examination
CPT/HCPCS: 36415; 85014; 85018; 86850; 86900; 86901

== ENCOUNTER 2025-03-06 01:00 | Day surgery (SDC) | payer OTHER, SELFPAY ==
--- OUTSIDE RECORDS SUMMARY | 2023-12-09 16:30 | XMS_ITS ---
Author Organization On License Of [facility] [place] ([address]) Address [address] [place] [address] Care Team Providers Care Land Sales Agent Name Role Phone Ethan Duggan Unavailable [phone] ZZ-Migration, Provider Unavailable Unavailab le REASON FOR VISIT [facility] To [facility] Conversion Encounter Medications Medication SIG (Take, Route, Fr equency, Duration) Notes Start Date End Date Status buPROPion HCl ER (SR) 150 MG 1 tab(s) orally 2 times a day Active Trintellix 10 MG 1 tab(s) orally once a day Active Montelukast Sodium 10 MG 1 tab(s) orally once a day; Duration: 30 day(s) 11/24/2021 Active Auvi-Q 0.3 MG/0.3ML as directed intramus cularly once; Duration: 30 day(s) 11/24/2021 Active Famotidine 40 MG 1 tab(s) orally 30 m inutes before shots 11/24/2021 Active Azelastine HCl 137 MCG/SPRAY 2 spray(s) intranasally 2 times a day; Duration: 30 day(s) 11/24/2021 Active Ventolin HFA 108 (90 Base) MCG/ACT 2 puff(s) inhaled every 6 hours Active Encounters Encounter Location Date Provider Diagnosis [facility] - [address] [place] [address] 12/09/2023 Provider ZZ-Migration Plan Of Treatment No Information Progress Notes * Josi BRADLEY MDOB:07/1989 (35 yo F)Acc No.[id number]:12/09/2023 Patient: Josi GONZALES Provider: Romel Mckeon :1990 A ge:33 Y S ex:Female Date:12/09/2023 Address:[address] [facility] Subjective: * Chief Complaints: * [facility] . [facility] * Medical History: * Medications: T aking Montelukast Sodium 10 MG Tablet 1 tab(s) orally once a day , Taking Auvi-Q 0.3 MG/0.3ML Solution Auto-injector as directed intramuscularly once , Taking Famotidine 40 MG Tablet 1 tab(s) orally 30 minutes before shots , Taking Azelastine HCl 137 MCG/SPRAY Solution 2 spray(s) intranasally 2 times a day , Taking Ventolin HFA 108 (90 Base) MCG/ACT Aerosol Solution 2 puff(s) inhaled every 6 hours , Taking buPROPion HCl ER (SR) 150 MG Tablet Extended Release 12 Hour 1 tab(s) orally 2 times a day , Taking Trintellix 10 MG Tablet 1 tab(s) orally once a day Objective: * Vitals: Assessment: Plan: * Treatment: * Billing Information: * Visit Code: * Procedure Codes: * Electronic signature of Tj MontesZ-Migration on 03/06/2025 at 01:02 AM CDT Sign off status: Pending * Provider: Romel Mckeon Date: 0 12/09/[address]/Srikanth/Todd on: 03/06/2025 01:02 AM CDT
[2025-02-28 08:33] VITALS: BMI 39.2
--- NOTE | 2025-02-28 08:35 | PC.NURSE ---
Report to the Outpatient Waiting Room, entrance under the green pavilion located off [facility], at time _0730_ on date _[id number]_. Planned Procedure Time: _0930_.? Time changes happen often and if your time is changed the preop area will call you the afternoon before. - You and your visitor will be asked to self-screen and do not enter if you have any COVID symptoms. Please call surgeon if you need to reschedule. - A mask is optional within the hospital at this time. Patients may have clear liquids (water, carbonated beverages, clear teas, apple juice) until 3 hours prior to surgery with a maximum of 20 ounces. - No food from midnight until time of surgery and no smoking, or chewing tobacco (or any form of nicotine). No chewing gum, candy or mints. Take only the following medications with a SIP of water on the morning of surgery: ___Bupropion, Trintellix and if needed Albuterol and or Hydrocodone.___ DO NOT STOP ANY OF YOUR OTHER PRESCRIPTION MEDICATIONS PRIOR TO SURGERY EXCEPT THE FOLLOWING Hold all vitamins and supplements for 3 days per anesthesiologist. Medications to discontinue per physician Date to take last dose Please no make-up, nail british, hairspray, perfume, deodorant, or body powder the day of surgery.? No jewelry (including any body piercings) or valuables the day of surgery, leave them at home.? Please take a shower or bath the night before, or the morning of, surgery with an antibacterial soap.? Wear comfortable, loose fitting clothing.? - Jewelry must be removed prior to entering the operating room.? Rings and piercings that are not removed may be cut off. - The hospital will not accept responsibility for valuables.? - Please leave all valuables, including medications, at home the day of surgery. If you are going home after surgery, a licensed route delivery driver must drive you home.? - NO public transportation without another adult if you receive anesthesia. - We recommend that an adult stay with you for 24 hours following discharge. - We also recommend that you do not drive, make important decision, drink alcoholic beverages, or take any drugs that were not prescribed by your health care provider for at least 24 hours after your discharge time. Follow any additional instructions given to you from your surgeon. Telephone instructions given to __Zakiyasey___and asked if any additional questions and then verbalized understanding. Patient advised to call surgeon office or pre surgery nurse liaison [phone] if any additional questions.
--- NOTE | 2025-03-04 03:50 | PM.IMHP ---
H&P: HPI History of Present Illness Date/Time: 03/04/25 03:50 Chief Complaint: Pelvic pain Narrative: This is 35 year admitted laparoscopy cystectomy possible patient is status post hysterectomy as a complex right ovarian cyst. Risks and benefits of this procedure reviewed including not exclusive , aspiration pneumonia, bleeding, transfusion, perforation injury to bowel, bladder, ureters, or other internal organs with need for open laparotomy. She received the [employer] handout entitled laparoscopy. She had all questions answered. She asked to proceed. Review of Systems Review of Systems: All systems reviewed & are unremarkable except as noted in HPI and below PMFSH Past Medical History Medical History Obesity Asthma Migraine Anxiety Social History Social History Smoking status: Never smoker Alcohol intake: current Living arrangements: with family Spiritual care concerns: No Meds Home Medications and Allergies Home Medications ?Medication ?Instructions ?Recorded ?Confirmed ?Type albuterol sulfate 90 mcg/actuation 2 puff inhalation Q6H PRN 01/06/20 02/28/25 History aerosol inhaler Shortness Of Breath bupropion HCl 150 mg 24 hr tablet, 150 mg PO DAILY 01/06/20 02/28/25 History extended release vortioxetine 10 mg tablet 1 tablet PO DAILY 11/18/21 02/28/25 History (Trintellix) cetirizine 10 mg tablet (Zyrtec) 10 mg PO DAILY 11/07/23 02/28/25 History montelukast 10 mg tablet 10 mg PO DAILY 11/07/23 02/28/25 History hydrocodone 5 mg-acetaminophen 325 1 tablet PO Q4H PRN pain #20 tabs 11/10/23 02/28/25 Rx mg tablet estradiol 2 mg tablet 2 mg PO DAILY 02/28/25 02/28/25 History ferrous sulfate 325 mg (65 mg 325 mg PO DAILY 02/28/25 02/28/25 History iron) tablet (FeroSul) magnesium 250 mg tablet 250 mg PO DAILY 02/28/25 02/28/25 History Allergies Allergy/AdvReac Type Severity Reaction Status Date / Time latex Allergy Mild BURNING Verified 02/28/25 08:24 Exam Const: General: cooperative, healthy appearing, comfortable and overweight Orientation/consciousness: oriented to person, oriented to place and oriented to time HENMT: Head: normal to inspection Resp: Effort & Inspection: normal respiratory effort Cardio: Rate: regular rate Rhythm: regular rhythm Heart sounds: S1 normal heart sound present and S2 normal heart sound present GI: Inspection: normal to inspection : Speculum Exam - Vagina: normal appearance of the vagina Speculum Exam - Cervix: Cervix absent Bimanual exam- vagina & uterus: uterus absent Bimanual Exam- Adnexa, other: tender on the right Assessment and Plan Assessment and plan (1) Pelvic pain: Code(s): R10.2 - Pelvic and perineal pain Status: Acute (2) Right ovarian cyst: Code(s): N83.201 - Unspecified ovarian cyst, right side Status: Acute Plan Laparoscopy with right ovarian cystectomy possible right oophorectomy
[2025-03-06] VITALS (9 sets, daily range): BP systolic 105–137; BP diastolic 67–77; PULSE 62–102; RESP 12–16; TEMP 36.3–36.9; O2SAT 96–100
--- OUTSIDE RECORDS SUMMARY | 2025-03-06 01:02 | XMS_ITS | Clinical Summary ---
Author Organization [facility] Address [address] [place] [address] Care Team Providers Care Medical Clerk Name Role Phone Saurabh Lam MD Unavailable Bala Grant MD Primary Care Provider Allergies Active Allergy Reactions Criticality Noted Date Comments Prednisone Itching 01/21/2023 Seasonal Sneezing 12/06/2016 Medications Cetirizine HCl 10 MG Cap Active Elastic Bandages & Supports (JOBST KNEE HIGH COMPRESSION SM) Misc 20-30 MMHg Compression Stocking Knee High open or closed toe Dx I83.893 1 each 12 12/14/19 17 Active COMPRESSION STOCKINGS 20-30 MMHg Compression Stocking Knee High open or closed toe Dx I83.893 1 Container 12 12/14/19 17 Active ALPRAZolam 0.25 MG tablet TK 1 T PO Q 8 H PRN 0 01/05/20 17 Active buPROPion XL 150 MG 24 hr tablet Take 1 tablet (150 mg total) by mouth daily. Active TRINTELLIX 10 MG tablet Take 1 tablet (10 mg total) by mouth daily. 06/10/20 22 Active montelukast (SINGULAIR) 10 MG tablet Take 1 tablet (10 mg total) by mouth daily. Active naloxone (NARCAN) 4 MG/0.1ML nasal spray 1 spray by Nasal route as needed for Opioid reversal. may repeat every 2 to 3 minutes in alternating nostrils until medical assistance becomes available 1 each 09/09/19 25 026 Active ondansetron (ZOFRAN-ODT) 4 MG disintegrating tablet Take 1 tablet (4 mg total) by mouth every 8 (eight) hours as needed for Nausea. 10 tablet 09/09/19 25 Active HYDROcodone-acetam inophen (NORCO) 5-325 MG tabletIndications: Acute Pain < 3 Day Supply Take 1 tablet by mouth every 6 (six) hours as needed for Pain. Indications: Acute Pain < 3 Day Supply 10 tablet 09/09/19 25 Active Active Problems Problem Noted Date Diagnosed Date Shoulder pain 07/18/2024 Varicose vein of leg 12/13/2016 Chronic venous insufficiency 12/13/2016 Mixed hyperlipidemia Family History Relation Status Comments Brother Alive Father Alive Maternal Grandfather Alive Maternal Grandmother Alive Mother Alive Paternal Grandfather Alive Paternal Grandmother Alive Social History Tobacco Use Types Packs/Day Years Used Date Smoking Tobacco: Never Smokeless Tobacco: Never Tobacco Cessation:Counseling Given: No Alcohol Use Standard Drinks/Week Comments Not Currently 0 (1 standard drink = 0.6 oz pur e alcohol) Comments No Sex and Gender Information Value Date Recorded Sex Assigned at Female 07/18/2024 1:39 PM CLOTH BLEACHING RANGE BACK TENDER Legal Sex Female 4:19 PM CDT Gender Identity Not on file Sexual Orientation Not on file 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 file Not on file Not on file Last Filed Vital Signs Vital Sign Reading Time Taken Comments Blood Pressure 115/68 09/08/2024 12:30 PM CDT Pulse 88 09/08/2024 12:30 PM CDT Temperature 36.5 C (97.7 F) 09/08/2024 10:37 AM CDT Respiratory Rate 18 09/08/2024 12:3 0 PM CDT Oxygen Saturation 100% 09/08/2024 12: 30 PM CDT Inhaled Oxygen Concentration - - Weight 112.7 kg (248 lb 6.4 oz) 025 10:37 AM CDT Height 165.1 cm (5' 5) 09/08/2024 10:3 7 AM CDT Body Mass Index 41.34 09/08/2024 10:37 AM CDT Plan of Treatment Health Maintenance Due Date Last Done Comments Annual Physical 1993 Hepatitis C 01/26/2008 COVID-19 Vaccine ( season) 2025 DTaP, Tdap and Td Vaccines (6 - Td or Tdap) 09/19/2028 09/19/2018, 06/13/2016, 12/16/2005, Additional history exists Hepatitis B Vaccines Completed 02/01/2000, 09/01/1999, 08/02/1999 Meningococcal Vaccine Aged Out 12/17/2007 No luiz nate eligible based on patient's age to complete this topic HPV Vaccines Completed 01/20/2009, 08/25, 07/22/2008 Meningococcal B Vaccine Aged Out No l onger eligible based on patient's age to complete this topic Pneumococcal Vaccine: Pediatrics (0 to 5 Years) and At-Risk Patients (6 to 49 Years) Aged Out No longer eligible based on patient's age to complete this topic RSV Immunizations Under 20 Months Aged Out No longer eligible based on patient's age to complete this topic Insurance * Guarantor: Josi Bradley Account Type Relation to Patient Date of Phone Billing Address Personal/Family Self 1990 [address] [place] [address] [employer] Member Subscriber Plan / Payer (Ef fective 2018-Present) Name:Josi Bradley Relation to Subscriber:Spouse Name:MIKESHALININOLBERTO CARVER Date of :1989 (Home) Address: [address] [place] [address] Payer ID:[id number] ([employer]) Type:Not on file Address: [facility] [id number] [place] [phone] * Guarantor: Josi Bradley Account Type Relation to Patient Date of Phone Billing Address Personal/Family Self 1990 [address] [place] [address] Care Teams Medical Clerk Relationship Specialty Start Date End Date Bala Grant MD [address] [place] [phone] PCP - General FAMILY PRACTICE 06/22/22 Saurabh Lam MD Vascular/Crematorium Operator INTERNAL MEDICINE 12/05/16
--- OUTSIDE RECORDS SUMMARY | 2025-03-06 01:02 | XMS_ITS | Encounter Summary ---
Author Organization [facility] Address [facility] [place] [address] Care Team Providers Care Rotary Dryer Operator Name Role Phone Bala Grant MD Primary Care Provider Saurabh Lam MD Unavailable Yasmani Khan MD Primary Care Provider Unavai Bala Cornejo MD Primary Care Provider Encounter Details Date Type Department Care Team (Late st Contact Info) Description 12/01/2018 Abstract SFL CONVERSION [address] [place] [address] , Generic Conversion, Social History Tobacco Use Types Packs/Day Years Used Date Smoking Tobacco: Never Smokeless Tobacco: Never Alcohol Use Standard Drinks/Week Comments No 0 (1 standard drink = 0.6 oz pur e alcohol) Comments Unknown Sex and Gender Information Value Date Recorded Sex Assigned at Female 07/18/2024 1:39 PM NOCTURNIST PHYSICIAN Legal Sex Female 4:19 PM CDT Gender Identity Not on file Sexual Orientation Not on file 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 Not on file Not on file documented as of this encounter Plan of Treatment Not on file documented as of this encounter Visit Diagnoses Not on filedocumented in this encounter Care Teams Rotary Dryer Operator Relationship Specialty Start Date End Date Bala Grant MD [address] [place] [phone] PCP - General FAMILY PRACTICE 12/05/16 12/31/20 Yasmani Khan MD [address] [place] [phone] PCP - General INTERNAL MEDICINE 01/01/2106/21 Bala Grant MD [address] [place] [phone] PCP - General FAMILY PRACTICE 06/22/22 Saurabh Lam MD [address] [place] [phone] Vascular/School Lunch Manager INTERNAL MEDICINE 12/05/16 documented as of this encounter
--- OUTSIDE RECORDS SUMMARY | 2025-03-06 01:02 | XMS_ITS | Clinical Summary ---
Author Organization [facility] Medical Office Building A Address [address] [place] [address] Care Team Providers Care Applied Computer Science Professor Name Role Phone Yasmani Khan MD Primary [...] 07/24/2019 Assessment & Plan (07/24/2019 11:14 AM ELEVATOR ADJUSTER): congrad on wt loss and discussed further wt loss and target wt forthte future with 150 a great goal for hte future. As a upper wt PE (physical exam), annual 07/24/2019 Assessment & Plan (07/24/2019 11:23 AM ELEVATOR ADJUSTER): healtlhy female and purposoeful wt loss.would recheck labs wit zuly malhotra at work and bringin in future. To check up on chol and vit d def., work on wt and bring in screening labs in future Vitamin D deficiency 07/24/2019 Assessment & Plan (07/24/2019 11:24 AM ELEVATOR ADJUSTER): willswitch to 5000 a day from [id number] a week after 3 months. Metabolic syndrome 04/26/2019 Assessment & Plan (07/24/2019 11:15 AM ELEVATOR ADJUSTER): Wt loss will convert this to l and will go away so cont with wt off and limit simple crbs Assessment & Plan (04/26/2019 2:55 PM CDT): Insulin levels high and drop wt and will see improvement . Has memtformin from tactical air defense controller and thinking of taking and talked at [...] copayments. Assessment & Plan (07/24/2019 11:16 AM ELEVATOR ADJUSTER): Several monoths from last Assessment & Plan (10/28/2017 10:14 AM CDT): Tract numbers so as to know How many you have. Before starting meds Pure hypercholesterolemia 10/28/2017 Assessment & Plan (07/24/2019 11:16 AM ELEVATOR ADJUSTER): Works to contrll intake and I proves with diet [id number] to yr'ly Assessment & Plan (10/28/2017 10:17 AM CDT): Prior elevatio and not checked for several yrs. Will order check. Panic 10/28/2017 Assessment & Plan (07/24/2019 11:15 AM ELEVATOR ADJUSTER): Controlled on meds andnot used the xanax for months. Given pst hx plains on staying on celelxfor the future Assessment & Plan (10/28/2017 10:18 AM CDT): celexa working and will stay on. Given by tactical air defense controller and working./ Resolved Problems Problem Noted Date [...] on file Legal Sex Female 11:28 PM ELEVATOR ADJUSTER Gender Identity Not on file Sexual Orientation Not on file Obstetrics History Last Filed Vital Signs Vital Sign Reading Time Taken Comments Blood Pressure 108/66 09/22/2021 11:00 AM CDT Pulse 82 09/22/2021 11:00 AM CDT Temperature 36.7 C (98 F) 09/22/2021 11:00 AM CDT Respiratory Rate 18 07/24/2019 10:27 AM ELEVATOR ADJUSTER Oxygen Saturation 99% 09/22/2021 11:00 AM CDT [...] Billing Address Personal/Family Self 1990 [address] [place] [address] [employer] Member Subscriber Plan / Payer (Ef fective 2021-Present) Name:Josi Bradley Relation to Subscriber:Spouse Name:MIKESHALININOLBERTO CARVER Date of :1989 (Home) Address: [address] [place] [address] Payer ID:[id number] ([facility]) Type:CIGNA HMO/PPO Address: [facility] [id number] [phone] * Guarantor: Josi Bradley Account Type Relation to Patient Date of Phone Billing Address Personal/Family Self 1990 [address] [place] [address] [employer] Member Subscriber Plan / Payer (Ef fective 2021-Present) Name:Josi Bradley Relation to Subscriber:Spouse Name:NOLBERTO BRADLEY Subscriber ID:Not on file Date of :1989 (Home) Address: [address] [place] [address] Payer ID:[id number] ([employer]) Type:CIGNA HMO/PPO Address: [facility] [id number] [place], [place] [address] [address] * Guarantor: Josi Bradley Account Type Relation to Patient Date of Phone Billing Address Personal/Family Self 1990 [address] [place] [address] Care Teams Applied Computer Science Professor Relationship Specialty Start Date End Date Yasmani Khan MD PCP - General 04/29/14
--- OUTSIDE RECORDS SUMMARY | 2025-03-06 01:03 | XMS_ITS | Clinical Summary ---
Author Organization [facility] Address [address] [place] [id number] Phone Care Team Providers Care Collar Padder Blindstitch Name Role Phone Yasmani Khan MD Primary [...] on file Legal Sex Female 5:06 PM HANGAR ATTENDANT Gender Identity Not on file Sexual Orientation Not on file Last Filed Vital Signs Vital Sign Reading Time Taken Comments Blood Pressure 112/72 08/09/2017 5:17 PM HANGAR ATTENDANT Pulse 120 08/09/2017 5:17 PM HANGAR ATTENDANT Temperature 37.8 C (100.1 F) 08/09/2017 5:17 PM HANGAR ATTENDANT Respiratory Rate 18 08/09/2017 5:17 PM HANGAR ATTENDANT Oxygen Saturation 97% 08/09/2017 5:17 PM HANGAR ATTENDANT Inhaled Oxygen Concentration - - Weight 88.9 kg (196 lb) 08/09/2017 5:17 PM HANGAR ATTENDANT Height 165.1 cm (5' 5) 08/09/2017 5:17 PM HANGAR ATTENDANT Body Mass Index 32.62 08/09/2017 5:17 PM HANGAR ATTENDANT Plan of Treatment Health Maintenance Due Date [...] age to complete this topic Care Teams Collar Padder Blindstitch Relationship Specialty Start Date End Date Yasmani Khan MD [address] [place] [address] [address] IGNAC[address] [place], [place] [address], [place] [address] PCP - General Internal Medicine 08/09/17
--- OUTSIDE RECORDS SUMMARY | 2025-03-06 01:03 | XMS_ITS | Patient Health Record ---
Author Organization [facility] [employer] [place] ([address]) Address [address] [place] [address] Care Team Providers Care Pound Keeper Name Role Phone Ethan Duggan Unavailable [phone] Allergies No Known Allergies Reason For Referral [...] W/U Status Risk Notes Problem Anxiety disorder (835749326) Anxiety disorder, unspecified (F41.9) Active confirmed Problem Chronic allergic conjunctivitis (73124635) Other chronic allergic conjunctivitis (H10.45) Active confirmed Problem Allergic rhinitis caused by pollen (disorder) (25843946) Allergic rhinitis due to pollen (J30.1) Active confirmed Problem Allergic rhinitis (63987322) Other allergic rhinitis (J30.89) Active confirmed Problem Allergic rhinitis caused by animal hair and dander (528762764250934) Allergic rhinitis due to animal (cat) (dog) hair and dander (J30.81) Active confirmed Problem Chronic sinusitis (37719846) Other chronic sinusitis (J32.8) Active confirmed Plan Of Treatment No Information Insurance Providers Payer Name Payer Address Payer Phone Subscriber Number Group Number Insured Name Patient Relationship to Insured Coverage Start Date Coverage End Date Amara ALEXANDER [address] [place] [address] [id number] Josi Kingston i Self - patient is the insured Medical (General) History Medical History History ICD Code Anxiety disorder, unspecified F41.9 Surgical History Surgery Date(Month/Year)
--- NOTE | 2025-03-06 05:44 | WPDHPUPDATE1 ---
History and Physical Update Update Date/Time: 03/06/25 05:44 History and Physical has been reviewed, including an updated exam of the patient. There are NO changes in the patient's condition. Risks, benefits, and alternatives have been discussed and questions answered. Patient agrees to proceed with procedure.
[2025-03-06] MEDS: LACTATED RINGERS 1,000 ML 30 ML IV CONT (08:00)
[2025-03-06] MEDS: KETOROLAC 15 MG/ML VIAL (*BKC) IV PUSH (08:18)
[2025-03-06] MEDS: ACETAMINOPHEN 500 MG TABLET 1000 MG PO (08:18)
--- NOTE | 2025-03-06 08:33 | WPDANESEPPF ---
Anes - Initial Pre Proc Eval Procedure: Operation Date: 03/06/25 09:30 Proposed Procedures p Laparoscopy, Right Ovarian Cystectomy - Claudy Milton MD Date/Time: 03/06/25 08:33 Surgeon: Claudy Milton MD Pre Op Diagnosis: pelvic pain, right ovarian cyst Patient Data Age: 35 Gender: F Height: 1.65 m Weight: 107.1 kg Last Vital Signs Temp 36.3 C L 03/06/25 08:21 Pulse 80 03/06/25 08:21 Resp 16 03/06/25 08:21 BP 137/73 03/06/25 08:21 Pulse Ox 100 03/06/25 08:21 O2 Del Method Room Air 03/06/25 08:21 Allergies Allergy/AdvReac Type Severity Reaction Status Date / Time latex Allergy Mild BURNING Verified 03/06/25 08:19 Home Medications ?Medication ?Instructions ?Recorded ?Confirmed ?Type albuterol sulfate 90 mcg/actuation 2 puff inhalation Q6H PRN 01/06/20 02/28/25 History aerosol inhaler Shortness Of Breath bupropion HCl 150 mg 24 hr tablet, 150 mg PO DAILY 01/06/20 02/28/25 History extended release vortioxetine 10 mg tablet 1 tablet PO DAILY 11/18/21 02/28/25 History (Trintellix) cetirizine 10 mg tablet (Zyrtec) 10 mg PO DAILY 11/07/23 02/28/25 History montelukast 10 mg tablet 10 mg PO DAILY 11/07/23 02/28/25 History hydrocodone 5 mg-acetaminophen 325 1 tablet PO Q4H PRN pain #20 tabs 11/10/23 02/28/25 Rx mg tablet estradiol 2 mg tablet 2 mg PO DAILY 02/28/25 02/28/25 History ferrous sulfate 325 mg (65 mg 325 mg PO DAILY 02/28/25 02/28/25 History iron) tablet (FeroSul) magnesium 250 mg tablet 250 mg PO DAILY 02/28/25 02/28/25 History hydrocodone 5 mg-acetaminophen 325 1 tablet PO Q4H PRN pain #20 tabs 03/06/25 Rx mg tablet Patient hx anesthesia problems: none Family hx anesthesia problems: none Results Review: All pre-operative results and documents have been reviewed as part of the pre-operative evaluation. PMFSH Past Medical History Medical History Obesity Asthma Migraine Anxiety Social History Social History Smoking status: Never smoker Alcohol intake: current Living arrangements: with family Spiritual care concerns: No Anes - Eval Final PreProcedure Day of Procedure 03/06/25 08:33 Patient weight: obese Heart: regular rate and rhythm Lungs: clear to auscultation Airway: Mallampati scale class II Neurological: alert and oriented Last oral intake: >/= 8 hours ASA classification: II Emergent: no Anesthetic plan: proceed Anesthesia type and monitoring: general ETT and standard monitoring Results Review: All pre-operative results and documents have been reviewed as part of the pre-operative evaluation. Informed Consent: The patient's anesthetic plan and its attendant risks and benefits were discussed with the patient/family/POA. Questions were solicited and answers provided to the satisfaction of the patient/family/POA.
--- NOTE | 2025-03-06 09:53 | S_PTH ---
PATIENT: Josi Bradley LOC: [facility] U#:[id number] AGE/SX: 35/F ROOM: RE03/06/[address]: Claudy Milton MD : 1990 BED: DIS: 03/06/2025 SPEC #: [id number] RECD: 03/06/25 11:41 STATUS: MALENA REQ #: [id number] BRENDAN: 03/06/25 09:[address]: Claudy Kim DEPT: [facility] Surgical RECD BY: Fiorella Ramos ENTERED: 03/06/25 11:41 SP TYPE: Surgical OTHR DR: Bala Grant, Tissues: A - Mass Procedures: Hematoxylin and Eosin Stain Gross and Microscopic Level 3
--- NOTE | 2025-03-06 10:00 | P.OP_ITS ---
Procedure Note - Detailed Date of Procedure 03/06/25 Pre-op Diagnosis pelvic pain, right ovarian cyst Post-op Diagnosis Other (Pelvic pain/pelvic adhesions/cul-de-sac mass) Procedure Performed Laparoscopy with destruction of right ovarian endometriosis/lysis of adhesions/excision of cul-de-sac mass Surgeon Claudy Milton MD Anesthesia General Indications This is a 35-year-old female status post hysterectomy and left salpingo- oophorectomy admitted for laparoscopy Findings Uterus left ovary and tube were absent. Endometriosis was seen small amounts on right ovary which were easily destroyed. There was a cul-de-sac mass and pelvic adhesions Description of Procedure The patient was prepped draped in the normal sterile fashion placed in dorsal lithotomy position. Under excellent general trach anesthesia a sponge stick was placed in the vagina the bladder drained of clear urine the weighted speculum was removed the gloves were changed. An infraumbilical incision made the Veress needle passed in the abdomen. Abdomen filled with CO2 gas [id number]. The 5mm trocar advanced through the Optiview in no injury seen. Patient placed in Trendelenburg and a suprapubic incision made the 5mm trocar advanced under direct visualization assuring no injury. Left lower quadrant incision made and the 10mm trocar advanced under direct visualization assuring no injury. There were multiple adhesions in the mass that was attached to the cul-de-sac and the vaginal cuff the after removing the epiploica which were stock the cul-de-sac mass was peeled easily and placed in an Endo-Catch removed through the left lower quadrant irrigation undertaken until clear several small blistered areas on the ovary were seen consistent with endometriosis and these were individually cauterized. The patient had voiced hope to retain her ovaries and thus they capped. Irrigation undertaken until clear and no other abnormalities were seen. The lower sites removed. The gas removed from the abdomen. The upper site removed the incisions closed with 4 Monocryl glue. The patient was awakened went recovery in satisfactory condition. All sponge, needle, instrument counts were correct. There were no immediate complications Estimated Blood Loss 5 Drains No Packing No Pathology Yes Complications No immediate complications Condition Stable Disposition PACU
[2025-03-06] MEDS: fentaNYL CITRATE INJ (*CRX) 100 MCG/2 ML VIAL 25 MCG IV PUSH ×4 (10:37→10:46)
[2025-03-06] MEDS: oxyCODONE HCL (*CRX) 5 MG TAB IR PO (11:25)
== END 2025-03-06 12:18 | disposition home or self-care (01) ==
PROVIDERS: PCP Family Medicine; Visit Provider Obstetrics & Gynecology
PROC: (CPT 49320; principal; 2025-03-06 09:30)
DX: N80.101 Endometriosis of right ovary, unspecified depth (principal); N73.6 Female pelvic peritoneal adhesions (postinfective); L92.8 Other granulomatous disorders of the skin and subcutaneous tissue; J45.909 Unspecified asthma, uncomplicated; F41.9 Anxiety disorder, unspecified; E66.9 Obesity, unspecified; Z68.39 Body mass index [BMI] 39.0-39.9, adult; Z79.51 Long term (current) use of inhaled steroids; Z79.891 Long term (current) use of opiate analgesic
CPT/HCPCS: 58662; 88304; A9270; J1100; J1885; J2003; J2250; J2405; J2704; J3010; J7120